=== PATIENT | female | born 1985 | race Caucasian/White ===

== ENCOUNTER 2017-06-16 08:14 | Inpatient (IN) | payer OTHER, MEDICAID ==
[2017-06-16] VITALS (38 sets, daily range): BP systolic 95–150; BP diastolic 73–99; PULSE 77–100; RESP 16–18; TEMP 97.9–99.1
--- NOTE | 2017-06-16 08:55 | PD ---
HPI Chief Complaint ctx Date Seen: Jun 16, 2017 Time Seen: 08:47 Travel History International Travel<30 Days: No Contact w/Intl Traveler<30Days: No Known Affected Area: No History of Present Illness HPI Pt is a 32y/o @ 38.6wks. She has PNC with [facility]. She presents to the hospital with c/o ctx which started at 2am and intensified at 3am. No LOF or VB. +FM. No complications this . GBS neg. Weeks Gestation: 38 Para: 1 : 2 Last Menstrual Period: Jun 16, 2017 History Obstetric History Obstetric History x1 Past Surgical History Narrative Surgical posterior neck anterior neck tonsillectomy wisdom teeth extraction Family History Family History: Negative Social History Alcohol Use: No Tobacco Use: No Substance Abuse: No Review of Systems Except as stated in HPI: all other systems reviewed are Neg Physical Exam Narrative GENERAL: Well-nourished, well-developed patient. SKIN: Warm and dry. HEAD: Normocephalic and atraumatic. EYES: No scleral icterus. No injection or drainage. ABDOMEN/GI: Abdomen soft, non-tender, gravid EXTREMITIES: No cyanosis NEUROLOGICAL: Awake and alert. Motor and sensory grossly within normal limits. FHTs: 140s, +accels, no decels, moderate variability, reactive (pt moving with ctx and maternal HR tracing) TOCO: irregular CVX: 7/100/0 Data Data Vital Signs Reviewed: Yes Orders Orders Ob (2e) Additional Admit Info (06/16/17 08:41) Group B Strep: Negative MDM Plan 32y/o @ 38.6wks in active labor. -- admit to L&D -- CLD, epidrual PRN, cortes -- cat 1 tracing -- GBS neg Dr. Alfaro (rehabilitation therapy aide) notified of pt status and plan of care. Courtesy orders placed. She will assume care of the pt. Diagnosis Diagnosis: Primary Impression: 38 weeks gestation of Additional Impression: Uterine contractions during Carina Schneider MD Jun 16, 2017 08:55
[2017-06-16] MEDS ORDERED: LACTATED RINGER'S 1000 ML INJ 1,000 ML IV PRN (09:09)
[2017-06-16] MEDS ORDERED: LACTATED RINGER'S 1000 ML INJ 1,000 ML IV SCH (09:09)
[2017-06-16] MEDS ORDERED: LIDOCAINE HCL 1% 50 ML VIAL INFIL PRN (09:15)
[2017-06-16] MEDS ORDERED: SODIUM CHLORID 0.9% 500 ML INJ 500 ML IV PRN (09:15)
[2017-06-16] MEDS ORDERED: ONDANSETRON HCL 4 MG/2 ML VIAL IV PUSH PRN (09:15)
[2017-06-16] MEDS ORDERED: MINERAL OIL 10 ML VIAL TOPICAL PRN (09:15)
[2017-06-16] MEDS ORDERED: CITRIC ACID-SODIUM CITRATE LIQ 30 ML UDC PO SCH (09:15)
[2017-06-16] MEDS ORDERED: LIDOCAINE HCL 1% 50 ML VIAL I-DERMAL PRN (09:15)
[2017-06-16 09:29] LABS: AUTOMATED NEUTROPHIL # 8.7 TH/MM3 (1.8-7.7); BASOPHIL % 0.2 % (0.0-2.0); EOSINOPHIL % 0.2 % (0.0-4.0); HEMOGLOBIN 11.8 GM/DL (11.6-15.3); LYMPH % 8.6 % (9.0-44.0); LYMPHOCYTE # 0.9 TH/MM3 (1.0-4.8); MEAN CELL VOLUME 84.7 FL (80.0-100.0); MEAN CORPUSCULAR HEMOGLOBIN 28.5 PG (27.0-34.0); MEAN CORPUSCULAR HGB CONC 33.6 % (32.0-36.0); MONO % 3.5 % (0.0-8.0); MONOCYTE # 0.3 TH/MM3 (0-0.9); NEUT % 87.5 % (16.0-70.0); PLATELET COUNT 157 TH/MM3 (150-450); RED BLOOD COUNT 4.13 MIL/MM3 (4.00-5.30); RED CELL DISTRIBUTION WIDTH 14.6 % (11.6-17.2)
[2017-06-16] MEDS ORDERED: SODIUM CHLOR 0.9% 1000 ML INJ 1,000 ML IV PRN (09:29)
[2017-06-16] MEDS ORDERED: fentaNYL 2MCG-BUPIV 0.125% INJ 100 ML ONE ×2 (09:38→09:45)
[2017-06-16] MEDS ORDERED: ePHEDrine/NS 25 MG/5 ML SYR ONE (09:39)
[2017-06-16 09:45] LABS: BACTERIA, URINE RARE /hpf; BILIRUBIN, URINE NEG (NEG); BLOOD, URINE NEG (NEG); GLUCOSE,URINE NEG (NEG); KETONE, URINE NEG (NEG); MUCUS URINE FEW /lpf (OCC); NITRITE,URINE NEG (NEG); PH, URINE 6.5 (5.0-8.5); SQUAMOUS EPITHELIAL CELL URINE 3 /hpf (0-5); URINE COLOR YELLOW (YELLW/STRAW); URINE LEUKOCYTE ESTERASE NEG (NEG)
[2017-06-16] MEDS ORDERED: OXYTOCIN 30 UNITS-500ML PREMIX 500 ML IV ONE (10:00)
--- NOTE | 2017-06-16 12:28 | PD.OB.DELI ---
Weeks gestation: 38 Gest age assessed date: Jun 16, 2017 Gest age assessed time: 12:26 Pt started active labor?: Yes Medical induction of labor?: No Artificial rupture of membrane: No Anesthesia: Epidural Episiotomy: None Vaginal Delivery: Normal Presentation: Occiput anterior Nuchal Cord: None Delayed cord clamping (45 sec): Yes Infant: Female Delivery date: Jun 16, 2017 Delivery time: 11:58 One Minute : 9 Five Minute : 9 Weight: 3715g Placenta: Spontaneous delivery Laceration: 2 deg Repair: Chromic running (3-0 chromic), Vicryl interrupted Estimated blood loss: 300ml Haylee Alfaro MD Jun 16, 2017 12:28
[2017-06-16] MEDS ORDERED: WITCH HAZEL 50%/GLYCERIN 12.5% 40 PAD JAR TOPICAL PRN (12:30)
[2017-06-16] MEDS ORDERED: ACETAMINOPHEN 325 MG TAB PO PRN (12:30)
[2017-06-16] MEDS ORDERED: ZOLPIDEM TARTRATE 5 MG TAB PO PRN (12:30)
[2017-06-16] MEDS ORDERED: ALUMINUM/MAGNESIUM/SIMETH 30 ML CUP PO PRN (12:30)
[2017-06-16] MEDS ORDERED: DOCUSATE SODIUM 50 MG/SENNA 8.6 MG TAB PO PRN (12:30)
[2017-06-16] MEDS ORDERED: SODIUM CHLORIDE 0.9% FLUSH 10 ML FLUSH IV FLUSH PRN (12:30)
[2017-06-16] MEDS ORDERED: ONDANSETRON ODT 4 MG TAB PO PRN (12:30)
[2017-06-16] MEDS ORDERED: BENZOCAINE 20% TOPICAL SPRAY 60 ML CAN TOPICAL PRN (12:30)
[2017-06-16] MEDS ORDERED: OXYTOCIN 30 UNITS-500ML PREMIX 500 ML IV SCH (12:30)
[2017-06-16] MEDS ORDERED: fentaNYL 2MCG-BUPIV 0.125% 100 ML EPIDURAL SCH (13:00)
[2017-06-16] MEDS ORDERED: NO SYSTEM NARCOTICS PRN (13:00)
[2017-06-16] MEDS ORDERED: DO NOT ADMINISTER ANTICOAGULANTS PRN (13:00)
[2017-06-16] MEDS ORDERED: ePHEDrine/NS 25 MG/5 ML SYR IV PUSH PRN (13:00)
[2017-06-16] MEDS ORDERED: DIPHTH/TETANUS/ACEL PERTUSSIS (BOOSTER) 0.5 ML VIAL/PFS IM ONE (16:00)
[2017-06-16] MEDS ORDERED: MEASLES, MUMPS, RUBELLA VACCINE 0.5 ML VIAL SQ ONE (16:00)
[2017-06-16] MEDS: IBUPROFEN 600 MG TAB PO PRN ×2 (17:07→23:14)
[2017-06-16] MEDS ORDERED: SODIUM CHLORIDE 0.9% FLUSH 10 ML FLUSH IV FLUSH SCH (21:00)
[2017-06-17 07:35] VITALS: BP 137/74; PULSE 79; RESP 18; TEMP 97.4
[2017-06-17] MEDS ORDERED: INFLUENZA VIRUS VACCINE (QUADRIVALENT) 0.5 ML SYR IM ONE (10:00)
--- NOTE | 2017-06-17 10:48 | HHI.OB ---
Subjective Post Day: 1 Remarks doing well, would like to go home if baby is ready Objective Vitals/I&O Vital Signs Date Time Temp Pulse Resp B/P (MAP) Pulse Ox O2 Delivery O2 Flow Rate FiO2 06/17/17 07:35 97.4 79 18 137/74 (95) 06/16/17 19:13 97.9 84 16 115/74 (88) 06/16/17 15:45 98.6 83 16 133/74 (93) 06/16/17 14:00 94 132/76 (94) 06/16/17 13:30 90 139/86 (103) 06/16/17 13:20 78 130/82 (98) 06/16/17 13:01 86 150/85 (106) 06/16/17 12:50 18 06/16/17 12:45 81 139/90 (106) 06/16/17 12:45 18 06/16/17 12:30 82 135/87 (103) 06/16/17 12:16 83 123/75 (91) 06/16/17 12:15 99.1 18 06/16/17 12:00 90 135/99 (111) 06/16/17 11:55 79 06/16/17 11:50 82 06/16/17 11:45 86 95/81 (86) 06/16/17 11:45 80 06/16/17 11:41 18 06/16/17 11:31 86 144/75 (98) 06/16/17 11:30 88 18 06/16/17 11:25 84 138/73 (94) 06/16/17 11:25 82 06/16/17 11:25 100 06/16/17 11:20 86 06/16/17 11:20 87 06/16/17 11:20 84 127/77 (94) 06/16/17 11:15 83 18 128/79 (95) 06/16/17 11:15 87 06/16/17 11:15 84 06/16/17 11:10 81 123/81 (95) 06/16/17 11:10 85 06/16/17 11:10 82 06/16/17 11:05 84 06/16/17 11:05 86 119/78 (92) 06/16/17 11:05 89 06/16/17 11:00 83 122/87 (99) 06/16/17 11:00 90 06/16/17 11:00 18 06/16/17 11:00 98.5 06/16/17 11:00 82 06/16/17 10:55 82 06/16/17 10:55 83 06/16/17 10:55 82 126/79 (95) 06/16/17 10:50 83 06/16/17 10:50 83 126/75 (92) 06/16/17 10:50 77 Objective Remarks GENERAL: Well-nourished, well-developed patient. CARDIOVASCULAR: Regular rate and rhythm without murmurs, gallops, or rubs. RESPIRATORY: Breath sounds equal bilaterally. No accessory muscle use. ABDOMEN/GI: Abdomen soft, non-tender. Fundus: Firm, non-tender at umbilicus. GENITOURINARY: Light to moderate bleeding. EXTREMITIES: No cyanosis or edema, non-tender, without signs of DVT. Medications and IVs Current Medications Medications (Trade) Dose Ordered Sig/[place] Route Start Time Stop Time Status Last Admin (NS Flush) 2 ml BID IV FLUSH 06/16/17 21:00 (NS Flush) 2 ml UNSCH PRN IV FLUSH 06/16/17 12:30 06/16/17 14:08 (Tylenol) 650 mg Q4H PRN PO 06/16/17 12:30 (Motrin) 600 mg Q6H PRN PO 06/16/17 12:30 06/16/17 23:14 (Americaine 20% Top Spr) 1 spray Q4H PRN TOPICAL 06/16/17 12:30 06/16/17 17:08 (Tucks Pads) 1 applic QID PRN TOPICAL 06/16/17 12:30 06/16/17 17:08 (Ginger-Colace) 2 tab Q12H PRN PO 06/16/17 12:30 (Ambien) 5 mg HS PRN PO 06/16/17 12:30 (Mag-Al Plus Susp Liq) 15 ml Q8H PRN PO 06/16/17 12:30 (Zofran Odt) 4 mg Q6H PRN PO 06/16/17 12:30 Miscellaneous Information No systemic narcotics to be given except... UNSCH PRN .XX 06/16/17 13:00 06/17/17 12:59 Miscellaneous Information DO NOT ADMINISTER ANY ANTICOAGUL... UNSCH PRN .XX 06/16/17 13:00 06/17/17 12:59 Fentanyl/ Bupivacaine HCl 100 ml @ 0 mls/hr TITRATE EPIDURAL 06/16/17 13:00 (ePHEDrine/NS 25 MG/5 ML SYR) 10 mg UNSCH PRN IV PUSH 06/16/17 13:00 06/17/17 12:59 Assessment/Plan Problem List: (1) Vaginal delivery ICD Codes: O80 - Encounter for full-term uncomplicated delivery Assessment and Plan PPD 1 s/p sbd cont routine pp care dispo home today or tomorrow Haylee Alfaro MD Jun 17, 2017 10:48
[2017-06-17] MEDS ORDERED: IBUP-232 PO (10:49)
--- NOTE | 2017-06-17 10:50 | HHI.DCPOC ---
Discharge Care Plan Diagnosis: (1) Vaginal delivery Your Health Problems Are: Vaginal delivery Report Symptoms to Your Doctor -Temperature above 100.5 degrees -Redness, of incision or excessive or foul smelling drainage -Unusual pain or calf pain -Increased vaginal bleeding -Painful or difficulty urinating -Feelings of extreme sadness or anxiety after 2 weeks Goals to Promote Your Health * To prevent worsening of your condition and complications * To maintain your health at the optimal level Directions to Meet Your Goals Take your medications as prescribed Follow your dietary instruction Follow activity as directed Ensure plenty of rest for recovery Drink fluids for hydration Keep your appointments as scheduled Take your immunizations and boosters as scheduled If your symptoms worsen call your PCP, if no PCP go to Urgent Care Center or Emergency Room Smoking is Dangerous to Your Health. Avoid second hand smoke Call the 24-hour crisis hotline for domestic abuse at Haylee Alfaro MD Jun 17, 2017 10:50
[2017-06-17] MEDS: IBUPROFEN 600 MG TAB PO PRN (14:21)
== END 2017-06-17 16:12 | disposition home or self-care (01) | DRG 775 ==
LOC: HOBED 08:14 → H2EA 08:45 → H1EA 14:35
PROVIDERS: ADMIT Obstetrics & Gynecology; ATTEND Obstetrics & Gynecology
PROC: 10E0XZZ Delivery of Products of Conception, External Approach (ICD-10-PCS; principal; 2017-06-16)
PROC: 0KQM0ZZ Repair Perineum Muscle, Open Approach (ICD-10-PCS; 2017-06-16)
DX: O70.1 Second degree perineal laceration during delivery (principal); Z37.0 Single live birth; Z3A.38 38 weeks gestation of pregnancy; Z23 Encounter for immunization
CPT/HCPCS: 80307; 81001; 85025; 86900; 86901; 90686; Q2038